=== PATIENT | female | born 2000 | race African-American/Black ===

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

== ENCOUNTER 2020-01-06 11:09 | Emergency (ER) | payer SELFPAY ==
[2020-01-06] MEDS ORDERED: Ondansetron ODT 4 MG TAB ONE (11:26)
[2020-01-06 11:54] LABS: Bilirubin Negative (Negative); Blood, Urine Negative (Negative); Clarity Clear (Clear); Glucose, Urine (Dipstick) Negative (Negative); Ketone, Urine Negative (Negative); Leukocyte Negative (Negative); Nitrite Negative (Negative); Protein, Urine (Dipstick) Negative (Neg-Trace)
[2020-01-06 11:55] LABS: Pregnancy Test - Urine (BHCG) Negative (Negative); Pregu Control Background? CLEAR/WHITE (CLR/WHITE); Pregu Control Bar Appear? YES (CONTROL BAR)
== END 2020-01-06 12:30 | disposition home or self-care (01) ==
LOC: NAV ERS 11:09
DX: R11.2 Nausea with vomiting, unspecified (principal); R19.7 Diarrhea, unspecified
CPT/HCPCS: 81003; 81025; 99284; Q0162

== ENCOUNTER 2020-06-08 17:43 | Emergency (ER) | payer MEDICAID, SELFPAY | END 2020-06-08 18:15 | disposition home or self-care (01) | LOC: NAV ERS 17:43 | DX: T65.891A Toxic effect of other specified substances, accidental (unintentional), initial encounter (principal); L98.8 Other specified disorders of the skin and subcutaneous tissue | CPT/HCPCS: 99283 ==

== ENCOUNTER 2021-05-19 15:27 | Emergency (ER) | payer BC ==
[2021-05-19] MEDS ORDERED: Ondansetron ODT 4 MG TAB ONE (15:53)
== END 2021-05-19 15:55 | disposition home or self-care (01) ==
LOC: NAV ERS 15:27
DX: O21.9 Vomiting of pregnancy, unspecified (principal); Z3A.12 12 weeks gestation of pregnancy
CPT/HCPCS: 99283; Q0162

== ENCOUNTER 2021-08-26 11:22 | Emergency (ER) | payer BC ==
[2021-08-26 12:01] LABS: Bilirubin Negative (Negative); Blood, Urine Trace (Negative); Clarity Clear (Clear); Glucose, Urine (Dipstick) Negative (Negative); Ketone, Urine Negative (Negative); Leukocyte Negative (Negative); Nitrite Negative (Negative); Protein, Urine (Dipstick) Negative (Neg-Trace); Urobilinogen 0.2 mg/dL (Less than 2); pH, Urine 7.5 (5.0-9.0)
[2021-08-26 12:05] LABS: RBC/HPF 0-3 HPF (0-3); Squamous Epithelial 0-3 HPF (0-3)
== END 2021-08-26 12:20 | disposition home or self-care (01) ==
LOC: NAV ERS 11:22
DX: O99.891 Other specified diseases and conditions complicating pregnancy (principal); R10.2 Pelvic and perineal pain
CPT/HCPCS: 81003; 81015; 99284

== ENCOUNTER 2022-03-21 13:46 | Emergency (ER) | payer BC, OTHER, SELFPAY ==
[2022-03-21] MEDS ORDERED: Sodium Chloride 0.9% 1,000 ML ONE (14:36)
[2022-03-21] MEDS ORDERED: Ketorolac Tromethamine 30 MG/ML VIAL ONE (14:36)
[2022-03-21 14:37] LABS: Bilirubin Negative (Negative); Blood, Urine Negative (Negative); Clarity Clear (Clear); Glucose, Urine (Dipstick) Negative (Negative); Ketone, Urine Negative (Negative); Leukocyte Negative (Negative); Nitrite Negative (Negative); Protein, Urine (Dipstick) Negative (Neg-Trace)
[2022-03-21 14:48] LABS: Amphetamine Not Detected (NotDetected); Barbiturates Screen Not Detected (NotDetected); Benzodiazepine Screen Not Detected (NotDetected); Cocaine Metabolite Screen Not Detected (NotDetected); Medtox Control Line Valid? VALID (VALID); Methadone Not Detected (NotDetected); Methamphetamine Not Detected (NotDetected); Opiate Screen Not Detected (NotDetected); Oxycodone Screen Not Detected (NotDetected); Phencyclidine (PCP) Not Detected (NotDetected); THC/Cannabinoid Screen Not Detected (NotDetected); Tricyclic Screen Not Detected (NotDetected)
[2022-03-21 14:57] LABS: BHCG - Serum Negative (NEGATIVE); Pregs Control Bar Appear? YES (CONTROL BAR)
[2022-03-21 15:01] LABS: ALT (SGPT) 18 U/L (8-55); AST (SGOT) 19 U/L (5-34); Albumin 4.5 g/dL (3.5-5.0); Alkaline Phosphatase 58 U/L (40-110); Anion Gap 13 mmol/L (10-20); BUN (Urea Nitrogen) 10 mg/dL (7.0-18.7); Bilirubin, Total 0.5 mg/dL (0.2-1.2); CK (CPK) 180 U/L (29-168); Calc. Creatinine Clearance 0 mL/min (70-130); Calcium 9.4 mg/dL (7.8-10.44); Carbon Dioxide 23 mmol/L (22-29); Chloride 106 mmol/L (98-107); Estimated GFR 107; Globulin 2.7 g/dL (2.4-3.5); Glucose 94 mg/dL (70-105); Lipase 37 U/L (8-78); Magnesium 1.5 mg/dL (1.6-2.6); Potassium 3.8 mmol/L (3.5-5.1); Protein, Total 7.2 g/dL (6.0-8.3); Sodium 138 mmol/L (136-145)
[2022-03-21 15:06] LABS: #Basophils 0.1 thou/uL (0.0-0.2); #Eosinphils 0.1 thou/uL (0.0-0.7); #Lymphocytes 1.2 thou/uL (1.20-3.40); #Monocytes 0.5 thou/uL (0.11-0.59); #Neutrophils 5.8 thou/uL (1.40-6.50); %Basophils 1.9 % (0.0-1.0); %Eosinophils 1.7 % (0.0-10.0); %Lymphocytes 14.9 % (21.0-51.0); %Monocytes 6.8 % (0.0-10.0); %Neutrophils 74.8 % (42.0-75.0); Mean Corpuscular HGB CONC 29.8 g/dL (32.0-36.0); Mean Corpuscular Volume 77.1 fl (78.0-98.0); Platelet Count 311 10x3/uL (130-400); RBC Distribution Width 20.7 % (11.5-14.5); Red Blood Cell (RBC) Count 4.37 mill/uL (4.20-5.40); White Blood Cell (WBC) Count 7.7 10x3/uL (4.8-10.8)
[2022-03-21] MEDS ORDERED: Magnesium 2 GM/50 ML BAG (IN WATER) ONE (15:13)
[2022-03-21 17:01] LABS: Troponin I 0.013 ng/mL (< 0.028)
== END 2022-03-21 17:11 | disposition home or self-care (01) ==
LOC: NAV ERS 13:46
DX: R07.89 Other chest pain (principal)
CPT/HCPCS: 71046; 80053; 80306; 81003; 82550; 83690; 83735; 84443; 84484; 84703; 85025; 93005; 96374; 96375; J1885; J3475; J7050

== ENCOUNTER 2023-08-12 18:45 | Emergency (ER) | payer SELFPAY | END 2023-08-12 19:05 | disposition home or self-care (01) | LOC: NAV ERS 18:45 | DX: R07.9 Chest pain, unspecified (principal) | CPT/HCPCS: 93005 ==